=== PATIENT | male | born 1960 | race Caucasian/White ===

== ENCOUNTER 2018-07-10 07:52 | Day surgery (SDC) | payer OTHER ==
[2018-07-09 13:15] VITALS: BMI 26.6
[2018-07-10 08:24] VITALS: TEMP 97.8
[2018-07-10] MEDS ORDERED: Propofol 10 mg/ml Inj (20 ML) ONE ×2 (11:13→11:29)
[2018-07-10 12:41] VITALS: BP 135/80; PULSE 60; RESP 20; O2SAT 100
== END 2018-07-10 12:35 | disposition home or self-care (01) ==
LOC: C.ENDO 07:52
PROVIDERS: ATTEND Internal Medicine Gastroenterology
DX: Z12.11 Encounter for screening for malignant neoplasm of colon (principal); D12.0 Benign neoplasm of cecum; K64.8 Other hemorrhoids
CPT/HCPCS: 45380; 88305; J2704